=== PATIENT | female | born 1995 | race African-American/Black ===

== ENCOUNTER 2017-08-01 20:58 | Emergency (ER) | payer OTHER ==
[2017-08-01 21:53] LABS: Hematocrit 38 % (35-47); Hemoglobin 12.2 g/dl (12.0-16.0); Mean Corpuscular HGB Conc 32 g/dl (31-36); Mean Corpuscular Hemoglobin 24 pg (27-31); Mean Corpuscular Volume 76 fL (80-97); Mean Platelet Volume 8 um3 (7.4-10.4); Red Blood Count 5.07 10^6/ul (4.0-5.4); Red Cell Distribution Width 14 % (10.5-15); White Blood Count 8.1 10^3/ul (3.5-10.8)
[2017-08-01 22:10] LABS: ALT 5 U/L (7-52); AST 15 U/L (13-39); Albumin 4.7 g/dL (3.2-5.2); Alkaline Phosphatase 51 U/L (34-104); Anion Gap 8 mmol/L (2-11); BUN/Creatinine Ratio 13.3 (8-20); Blood Urea Nitrogen 13 mg/dL (6-24); CO2 Carbon Dioxide 24 mmol/L (22-32); Calcium 9.9 mg/dL (8.6-10.3); Chloride 103 mmol/L (101-111); EGFR African American 91.3 (>60); Globulin 3.3 g/dL (2-4); Glucose 92 mg/dL (70-100); Potassium 3.5 mmol/L (3.5-5.0); Sodium 135 mmol/L (133-145)
[2017-08-01 22:11] LABS: Troponin I 0.01 ng/mL (<0.04)
[2017-08-01 22:14] LABS: Urine Bacteria 1+ (Absent); Urine Bilirubin Negative (Negative); Urine Glucose Negative (Negative); Urine Nitrite Negative (Negative)
[2017-08-01 22:20] LABS: Benzodiazepine Urine Screen None Detected (None Detect)
[2017-08-01 22:26] LABS: Acetaminophen < 15 mcg/mL; Alcohol < 10 mg/dL (<10); Salicylate < 2.50 mg/dL (<30)
[2017-08-01] MEDS ORDERED: Thyroid TAB* 120 MG PO ONE (22:54)
[2017-08-01 23:24] VITALS: BP 122/51
[2017-08-02] MEDS ORDERED: Oxymetazoline 0.05% NASAL SPR* 15 ML BTL BOTH NARES ONE (00:08)
[2017-08-02] MEDS ORDERED: Oxymetazoline 0.05% NASAL SPR* 15 ML BTL ONE (00:09)
--- NOTE | 2017-08-02 00:17 | ED ---
Dick Dorsey Rebecca, scribed for Fritz Montes on 08/01/17 at 2125 . Complex/Multi-Sys Presentation - HPI Summary HPI Summary: Pt is a 22 y/o F who presents to ED s/p episode of SOB. Pt states "I actually couldn't get air into my nose" and "my breathing just stopped." Pt reports that her sx have improved since onset. Sx aggravated by nothing, alleviated by standing up. Additionally states that her "hands were vibrating." Per triage note, EMS reported that it appeared as though she was having an anxiety attack. Denies CP, depression, SIs. PMHx anxiety. Pt reports she has a counselor. Is not on oral contraceptives. - History Of Current Complaint Chief Complaint: EDGeneral Time Seen by Provider: 08/01/17 21:10 Hx Obtained From: Patient Onset/Duration: Resolved Severity Currently: None Location: Negative Aggravating Factor(s): Nothing Alleviating Factor(s): Standing up Associated Signs And Symptoms: Positive: SOB, Other - Anxiety attack per EMS. Negative: Chest Pain - Allergies/Home Medications Allergies/Adverse Reactions: Allergies Allergy/AdvReac Type Severity Reaction Status Date / Time Shellfish Allergy Allergy Difficulty Verified 08/01/17 21:19 Breathing/Wheezing Shellfish-derived Products Allergy Difficulty Verified 08/01/17 21:19 Breathing/Wheezing PMH/Surg Hx/FS Hx/Imm Hx GI History: Reports: Hx Gastroesophageal Reflux Disease Psychiatric History: Reports: Hx Anxiety Infectious Disease History: No Infectious Disease History: Denies: Traveled Outside the [place] in Last 30 Days - Family History Known Family History: Positive: Other - N FHx psychiatric problems - Social History Occupation: Student Alcohol Use: None Substance Use Type: Reports: None Smoking Status (MU): Never Smoked Tobacco Review of Systems Negative: Chest Pain Positive: Shortness Of Breath - improved Positive: Other - "hands were vibrating" Positive: Anxious - Per EMS, pt appeared anxious, Other - NEGATIVE: SIs. Negative: Depressed All Other Systems Reviewed And Are Negative: Yes Physical Exam - Summary Physical Exam Summary: Appearance: Well appearing, no pain distress Skin: warm, dry, reflects adequate perfusion Head/face: normal Eyes: EOMI, NOHEMY ENT: normal Neck: supple, nontender Respiratory: CTA, breath sounds present Cardiovascular: RRR, pulses symmetrical Abdomen: nontender, soft Bowel: present Musculoskeletal: normal, strength/ROM intact Neuro: normal, sensory motor intact, A&Ox3 Triage Information Reviewed: Yes Vital Signs On Initial Exam: Initial Vitals Temp Pulse Resp BP Pulse Ox 98.6 F 105 18 128/70 100 08/01/17 21:06 08/01/17 21:06 08/01/17 21:06 08/01/17 21:06 08/01/17 21:06 Vital Signs Reviewed: Yes - [place] Coma Scale Coma Scale Total: 15 Diagnostics - Vital Signs Vital Signs Temp Pulse Resp BP Pulse Ox 08/01/17 21:06 98.6 F 105 18 128/70 100 - Laboratory Lab Results: Lab Results 08/01/17 08/01/17 08/01/17 Range/Units 21:42 21:42 21:42 WBC 8.1 (3.5-10.8) 10^3/ul RBC 5.07 (4.0-5.4) 10^6/ul Hgb 12.2 (12.0-16.0) g/dl Hct 38 (35-47) % MCV 76 L (80-97) fL MCH 24 L (27-31) pg MCHC 32 (31-36) g/dl RDW 14 (10.5-15) % Plt Count 290 (150-450) 10^3/ul MPV 8 (7.4-10.4) um3 Neut % (Auto) 61.6 (38-83) % Lymph % (Auto) 24.1 L (25-47) % Becker % (Auto) 12.3 H (1-9) % Eos % (Auto) 0.9 (0-6) % Baso % (Auto) 1.1 (0-2) % Absolute Neuts (auto) 5.0 (1.5-7.7) 10^3/ul Absolute Lymphs (auto) 1.9 (1.0-4.8) 10^3/ul Absolute Monos (auto) 1.0 H (0-0.8) 10^3/ul Absolute Eos (auto) 0.1 (0-0.6) 10^3/ul Absolute Basos (auto) 0.1 (0-0.2) 10^3/ul Absolute Nucleated RBC 0 10^3/ul Nucleated RBC % 0 D-Dimer, Quantitative 204 (Less Than 230) ng/mL Sodium 135 (133-145) mmol/L Potassium 3.5 (3.5-5.0) mmol/L Chloride 103 (101-111) mmol/L Carbon Dioxide 24 (22-32) mmol/L Anion Gap 8 (2-11) mmol/L BUN 13 (6-24) mg/dL Creatinine 0.98 H (0.51-0.95) mg/dL Est GFR ( Amer) 91.3 (>60) Est GFR (Non-Af Amer) 71.0 (>60) BUN/Creatinine Ratio 13.3 (8-20) Glucose 92 (70-100) mg/dL Calcium 9.9 (8.6-10.3) mg/dL Total Bilirubin 0.30 (0.2-1.0) mg/dL AST 15 (13-39) U/L ALT 5 L (7-52) U/L Alkaline Phosphatase 51 (34-104) U/L Troponin I 0.01 (<0.04) ng/mL Total Protein 8.0 (6.4-8.9) g/dL Albumin 4.7 (3.2-5.2) g/dL Globulin 3.3 (2-4) g/dL Albumin/Globulin Ratio 1.4 (1-3) TSH 7.10 H (0.34-5.60) mcIU/mL Beta HCG, Quant < 0.60 mIU/mL Urine Color Urine Appearance Urine pH (5-9) Ur Specific [place] (1.010-1.030) Urine Protein (Negative) Urine Ketones (Negative) Urine Blood (Negative) Urine Nitrate (Negative) Urine Bilirubin (Negative) Urine Urobilinogen (Negative) Ur Leukocyte Esterase (Negative) Urine WBC (Auto) (Absent) Urine RBC (Auto) (Absent) Ur Squamous Epith Cells (Absent) Urine Bacteria (Absent) Urine Glucose (Negative) Salicylates < 2.50 (<30) mg/dL Urine Opiates Screen (None Detect) Acetaminophen < 15 mcg/mL Ur Barbiturates Screen (None Detect) Ur Phencyclidine Scrn (None Detect) Ur Amphetamines Screen (None Detect) U Benzodiazepines Scrn (None Detect) Urine Cocaine Screen (None Detect) U Cannabinoids Screen (None Detect) Serum Alcohol < 10 (<10) mg/dL 08/01/17 08/01/17 Range/Units 21:46 21:46 WBC (3.5-10.8) 10^3/ul RBC (4.0-5.4) 10^6/ul Hgb (12.0-16.0) g/dl Hct (35-47) % MCV (80-97) fL MCH (27-31) pg MCHC (31-36) g/dl RDW (10.5-15) % Plt Count (150-450) 10^3/ul MPV (7.4-10.4) um3 Neut % (Auto) (38-83) % Lymph % (Auto) (25-47) % Becker % (Auto) (1-9) % Eos % (Auto) (0-6) % Baso % (Auto) (0-2) % Absolute Neuts (auto) (1.5-7.7) 10^3/ul Absolute Lymphs (auto) (1.0-4.8) 10^3/ul Absolute Monos (auto) (0-0.8) 10^3/ul Absolute Eos (auto) (0-0.6) 10^3/ul Absolute Basos (auto) (0-0.2) 10^3/ul Absolute Nucleated RBC 10^3/ul Nucleated RBC % D-Dimer, Quantitative (Less Than 230) ng/mL Sodium (133-145) mmol/L Potassium (3.5-5.0) mmol/L Chloride (101-111) mmol/L Carbon Dioxide (22-32) mmol/L Anion Gap (2-11) mmol/L BUN (6-24) mg/dL Creatinine (0.51-0.95) mg/dL Est GFR ( Amer) (>60) Est GFR (Non-Af Amer) (>60) BUN/Creatinine Ratio (8-20) Glucose (70-100) mg/dL Calcium (8.6-10.3) mg/dL Total Bilirubin (0.2-1.0) mg/dL AST (13-39) U/L ALT (7-52) U/L Alkaline Phosphatase (34-104) U/L Troponin I (<0.04) ng/mL Total Protein (6.4-8.9) g/dL Albumin (3.2-5.2) g/dL Globulin (2-4) g/dL Albumin/Globulin Ratio (1-3) TSH (0.34-5.60) mcIU/mL Beta HCG, Quant mIU/mL Urine Color Yellow Urine Appearance Clear Urine pH 6.0 (5-9) Ur Specific [place] 1.010 (1.010-1.030) Urine Protein Negative (Negative) Urine Ketones Negative (Negative) Urine Blood 2+ H (Negative) Urine Nitrate Negative (Negative) Urine Bilirubin Negative (Negative) Urine Urobilinogen Negative (Negative) Ur Leukocyte Esterase Negative (Negative) Urine WBC (Auto) Absent (Absent) Urine RBC (Auto) Trace(0-2/hpf) (Absent) Ur Squamous Epith Cells Present H (Absent) Urine Bacteria 1+ H (Absent) Urine Glucose Negative (Negative) Salicylates (<30) mg/dL Urine Opiates Screen None detected (None Detect) Acetaminophen mcg/mL Ur Barbiturates Screen None detected (None Detect) Ur Phencyclidine Scrn None detected (None Detect) Ur Amphetamines Screen None detected (None Detect) U Benzodiazepines Scrn None detected (None Detect) Urine Cocaine Screen None detected (None Detect) U Cannabinoids Screen None detected (None Detect) Serum Alcohol (<10) mg/dL Result Diagrams: 08/01/17 21:42 08/01/17 21:42 Lab Statement: Any lab studies that have been ordered have been reviewed, and results considered in the medical decision making process. - Radiology CXR Xray Interpretation: No Acute Changes Radiology Interpretation Completed By: ED Physician - EKG 21:25 Cardiac Rate: NL - 78 BPM EKG Rhythm: Sinus Rhythm EKG Interpretation: No acute changes. Re-Evaluation - Re-Evaluation First Eval Re-Evaluation Time: 23:00 Comment: Discussed D/C plan with the pt. Complex Multi-Symp Course/Dx Assessment/Plan: Pt is a 22 y/o F who presents to ED s/p episode of SOB. Pt states "I actually couldn't get air into my nose" and "my breathing just stopped." Pt reports that her sx have improved since onset. Sx alleviated by standing up. Additionally states that her "hands were vibrating." Per triage note, EMS reported that it appeared as though she was having an anxiety attack. Denies CP, depression, SIs. PMHx anxiety. Pt reports she has a counselor. Is not on oral contraceptives. MHE was completed and after a consultation with Dr. Perry it has been determined that the pt may follow up as an outpatient. She will be D/C to home with Dx of grief reaction, anxiety and hypothyroid. She understands and agrees. Allergies noted. Pt medications reviewed. - Diagnoses Differential Diagnoses/HQI/PQRI: Other - anxeity reaction/nasal congestion/sob Provider Diagnoses: Grief reaction, Hypothyroidism, Anxiety, Nasal congestion Discharge - Discharge Plan Condition: Stable Disposition: HOME Prescriptions: Thyroid TAB (NF) [Thyroid TAB 90 MG(NF)] 110 mg PO DAILY #30 tab Patient Education Materials: Hypothyroidism (ED), Anxiety (ED), Grief and Loss (ED) Referrals: Jeremiah Leiva MD [Primary Care Provider] - 3 Days Additional Instructions: Return to the ED for any returning or worsening symptoms. The documentation as recorded by the Dick huang Rebecca accurately reflects the service I personally performed and the decisions made by , Fritz Montes.
--- NOTE | 2017-08-02 07:44 | RAD ---
INDICATION: Shortness of breath and chest pain COMPARISON: None TECHNIQUE: PA and lateral views of the chest were obtained. FINDINGS: The heart and mediastinum are normal in size and contour. The lungs are grossly clear. There is no evidence of large pleural effusion. Visualized bones are normal for the patient's age. There is no radiographic evidence of free air beneath the diaphragm IMPRESSION: No radiographic evidence of acute cardiopulmonary disease.
[2017-08-02] MEDS ORDERED: Thyroid TAB* 120 MG PO ONE (22:54)
--- NOTE | 2017-08-05 09:10 | PN ---
Progress Note - Progress Note Date of Service: 08/01/17 Note: preliminary urine culture obtained and 10-25,000 of staph aureus grew. not a sufficient amount of growth to treat. no symptoms. no further change required at this time.
== END 2017-08-01 23:21 | disposition home or self-care (01) ==
LOC: ED 20:58
DX: F43.20 Adjustment disorder, unspecified (principal); E03.9 Hypothyroidism, unspecified; R09.81 Nasal congestion; R06.02 Shortness of breath; F41.9 Anxiety disorder, unspecified
CPT/HCPCS: 36415; 71020; 80053; 80307; 80320; 80329; 81003; 81015; 84443; 84484; 84702; 85025; 85379; 87077; 87086; 87186; 93005; 99285; A9270-GY; G0480

== ENCOUNTER 2017-08-03 22:09 | Emergency (ER) | payer OTHER ==
--- NOTE | 2017-08-04 01:10 | ED ---
Complex/Multi-Sys Presentation - HPI Summary HPI Summary: Pt is a 22 y/o F who presents to ED stating "I actually couldn't get air into my nose" and "my breathing just stopped. Like the air is getting stuck and I have to cough in order to breathe again. I also feel like there is a lump there. " Sx aggravated by nothing, alleviated by coughing. Denies CP, depression, SIs. No trouble swallowing, just discomfort. PMHx anxiety. Pt reports she has a counselor. Was seen on Tuesday for same symptoms and by PCP today who both stated viral illness with anxiety. No fever/chills or other complaints at this time. States when she swallows she feels something is in the way, in the front of her neck. Denies any food obstruction. The more she thinks about it the more anxious she gets and symptoms become more frequent. States it is uncomfortable and she is nervous. - History Of Current Complaint Chief Complaint: EDGeneral Time Seen by Provider: 08/03/17 23:51 Hx Obtained From: Patient Onset/Duration: Sudden Onset, Lasting Days, Still Present Timing: Constant Severity Currently: Mild Severity Initially: Mild Aggravating Factor(s): n/a Alleviating Factor(s): coughing Associated Signs And Symptoms: Positive: Other - anxiety, dysphagia - Allergies/Home Medications Allergies/Adverse Reactions: Allergies Allergy/AdvReac Type Severity Reaction Status Date / Time Shellfish Allergy Allergy Difficulty Verified 08/01/17 21:19 Breathing/Wheezing Shellfish-derived Products Allergy Difficulty Verified 08/01/17 21:19 Breathing/Wheezing PMH/Surg Hx/FS Hx/Imm Hx Endocrine/Hematology History: Denies: Hx Diabetes Cardiovascular History: Denies: Hx Hypertension Respiratory History: Denies: Hx Asthma GI History: Reports: Hx Gastroesophageal Reflux Disease Psychiatric History: Reports: Hx Anxiety - Surgical History Surgery Procedure, Year, and Place: n/a - Immunization History Immunizations Up to Date: Yes Infectious Disease History: No Infectious Disease History: Denies: Traveled Outside the [place] in Last 30 Days - Family History Known Family History: Positive: Other - N FHx psychiatric problems - Social History Alcohol Use: None Substance Use Type: Reports: None Smoking Status (MU): Never Smoked Tobacco Review of Systems Constitutional: Negative Positive: Other - dysphagia Cardiovascular: Negative Positive: Shortness Of Breath, Cough Positive: Anxious All Other Systems Reviewed And Are Negative: Yes Physical Exam Triage Information Reviewed: Yes Vital Signs On Initial Exam: Initial Vitals Temp Pulse Resp BP Pulse Ox 97.9 F 88 24 139/76 100 08/03/17 22:11 08/03/17 22:11 08/03/17 22:11 08/03/17 22:11 08/03/17 22:11 Vital Signs Reviewed: Yes Appearance: Positive: Well-Appearing, No Pain Distress, Well-Nourished Skin: Positive: Warm, Skin Color Reflects Adequate Perfusion, Dry. Negative: Cold, Cyanosis @, Erythema @ Head/Face: Positive: Normal Head/Face Inspection Eyes: Positive: EOMI, NOHEMY, Conjunctiva Inflammed ENT: Positive: Normal ENT inspection, Hearing grossly normal, Pharynx normal, TMs normal, Other - uvula midline, airway patent, no sign of peritonsillar abscess. upon palpation of thryroid may be slightly enlarged possible nodule left side?, however no obvious goiter noted. Negative: Nasal congestion, Nasal drainage, Tonsillar swelling, Tonsillar exudate, Trismus, Muffled voice Neck: Positive: Supple, Nontender Respiratory/Lung Sounds: Positive: Clear to Auscultation, Breath Sounds Present. Negative: Rales, Rhonchi, Wheezes Cardiovascular: Positive: Normal, RRR, Pulses are Symmetrical in both Upper and Lower Extremities. Negative: Murmur, Rub Abdomen Description: Positive: Nontender Bowel Sounds: Positive: Present Musculoskeletal: Positive: Normal, Strength/ROM Intact Neurological: Positive: Normal, Sensory/Motor Intact, Alert, Oriented to Person Place, Time - [place] Coma Scale Coma Scale Total: 15 Diagnostics - Vital Signs Vital Signs Temp Pulse Resp BP Pulse Ox 08/03/17 22:11 97.9 F 88 24 139/76 100 - Laboratory Lab Statement: Any lab studies that have been ordered have been reviewed, and results considered in the medical decision making process. Complex Multi-Symp Course/Dx Course Of Treatment: offered a CT soft tissue neck however patient decided she would rather wait for further thyroid testing and did not want to get a CT right now due to radiation. Due to complaint of symptoms and PE findings no emergent concern needing CT at this time. Appears to be suffering from anxiety and possible goiter. Had full work up on Tuesday night with normal labs other than elevated TSH. Possibly suffering from hypothyroidism, which needs further blood work and imaging at PCP. Patient is aware and understands. Could be cause of her symptoms. No other complaints or concerning etiology at this time. No injury or trauma. Inhaler and muscle relaxer to help with symptoms. Also discussed making appointment with councelor to discuss anxiety component. Aware of wrosening signs and symptoms. Spoke with Dr Montes about patient who agrees, no further work up required at this time. Follow up. - Diagnoses Differential Diagnoses/HQI/PQRI: Other - dysphagia, anxiety, hypothryoidism, thyroid nodule, goiter Provider Diagnoses: Anxiety, Hypothyroidism, Dysphagia Discharge - Discharge Plan Condition: Stable Disposition: HOME Prescriptions: Albuterol HFA INHALER* [Ventolin HFA Inhaler*] 1 puff INH Q4H PRN #1 mdi PRN Reason: Sob/Wheezing Cyclobenzaprine TAB* [Flexeril 10 MG TAB*] 10 mg PO BEDTIME PRN #5 tab PRN Reason: Spasms Patient Education Materials: Anxiety (ED), Hypothyroidism (ED), Thyroid Goiter (ED), Dysphagia (ED) Referrals: Abhinav Solitario MD [Medical Doctor] - Jeremiah Leiva MD [Primary Care Provider] - Additional Instructions: Use inhaler when you feel like you are having trouble breathing. Muscle relaxer at bedtime to decrease tension in muscles. Follow up with primary care to have further testing of thyroid as this may be the cause of your symptoms. Drink plenty of fluids. Make an appointment with ENT and third shift lieutenant if symptoms continue. Any new or worsening symptoms seek medical attention.
[2017-08-04 01:24] VITALS: BP 112/57
== END 2017-08-04 01:27 | disposition home or self-care (01) ==
LOC: ED 22:09
DX: R13.10 Dysphagia, unspecified (principal); F41.9 Anxiety disorder, unspecified; E03.9 Hypothyroidism, unspecified
CPT/HCPCS: 99282

== ENCOUNTER 2018-01-07 13:47 | Emergency (ER) | payer OTHER ==
[2018-01-07 14:35] VITALS: BP 117/75
--- NOTE | 2018-01-07 15:12 | UC ---
Abdominal Pain Female HPI - HPI Summary HPI Summary: c/o abdominal cramping, nausea and diarrhea since 01-03-18. Cramping was relieved momentarily by defecation but would recur after some time, and now is a dull generalized abdominal pain 5/10 which worsens in lower abdomen until another BM ensues. Patient denies melena, mucus or blood in stools, fever, flank pain or dysuria. She has been eating and drinking normally otherwise. She has history of GERD and has recurrence. - History of Current Complaint Chief Complaint: UCAbdominalPain Stated Complaint: CRAMPS Time Seen by Provider: 01/07/18 14:49 Hx Obtained From: Patient Hx Last Menstrual Period: 01/01/18 ?: No Onset/Duration: Sudden Onset, Lasting Days Timing: Intermittent Episodes Lasting: - between BM Severity Initially: Severe Severity Currently: Moderate Pain Intensity: 6 Location: Diffuse Radiates: No Character: Cramping, Dull Alleviating Factor(s): Bowel Movement Associated Signs and Symptoms: Positive: Diarrhea Allergies/Adverse Reactions: Allergies Allergy/AdvReac Type Severity Reaction Status Date / Time shellfish derived Allergy Difficulty Verified 01/07/18 14:35 Breathing PMH/Surg Hx/FS Hx/Imm Hx Previously Healthy: Yes GI/ History: Gastroesophageal Reflux - Surgical History Surgical History: None Surgery Procedure, Year, and Place: n/a - Family History Known Family History: Positive: Other - N FHx psychiatric problems - Social History Alcohol Use: Rare Substance Use Type: None Smoking Status (MU): Never Smoked Tobacco Review of Systems Constitutional: Negative Gastrointestinal: Diarrhea All Other Systems Reviewed And Are Negative: Yes Physical Exam Triage Information Reviewed: Yes Appearance: Well-Appearing, No Pain Distress, Well-Nourished Vital Signs: Initial Vital Signs Temp 98.6 F 01/07/18 14:24 Pulse 57 01/07/18 14:24 Resp 18 01/07/18 14:24 BP 117/75 01/07/18 14:24 Pulse Ox 100 01/07/18 14:24 Vital Signs Reviewed: Yes Eyes: Positive: Conjunctiva Clear ENT: Positive: Hearing grossly normal, Pharynx normal, TMs normal, Uvula midline Neck: Positive: Supple, Nontender, No Lymphadenopathy Respiratory: Positive: Chest non-tender, Lungs clear, Normal breath sounds, No respiratory distress Cardiovascular: Positive: RRR, No Murmur, Pulses Normal, Brisk Capillary Refill Abdomen Description: Positive: Nontender, No Organomegaly, Soft Bowel Sounds: Positive: Present Musculoskeletal: Positive: Strength Intact, ROM Intact, No Edema Abd Pain Female Course/Dx - Course Course Of Treatment: PO fluids and oral hydration, BRAT diet, avoid caffeine, greasy foods, alcohol. Reassurance given to patient - Differential Dx/Diagnosis Provider Diagnoses: viral gastroenteritis. GERD Discharge - Sign-Out/Discharge Documenting (check all that apply): Discharge - Discharge Plan Condition: Stable Disposition: HOME Prescriptions: Hyoscyamine ER (NF) [Levbid (NF)] 0.375 mg PO BID PRN #30 tab PRN Reason: Pain Pantoprazole TAB (NF) [Protonix TAB (NF)] 40 mg PO DAILY #30 tab Patient Education Materials: Dehydration (ED), Gastroenteritis (ED) Referrals: Jeremiah Leiva MD [Primary Care Provider] - - Billing Disposition and Condition Condition: STABLE Disposition: HOME
== END 2018-01-07 15:17 | disposition home or self-care (01) ==
LOC: UCEAST 13:47
DX: A08.4 Viral intestinal infection, unspecified (principal); K21.9 Gastro-esophageal reflux disease without esophagitis
CPT/HCPCS: 99212; G0463